=== PATIENT | female | born 1950 | race Native Hawaiian/Other Pacific Islander ===

== ENCOUNTER 2018-07-19 11:41 | Outpatient (CLI) | payer OTHER | END 2018-07-19 11:50 | disposition short-term general hospital (02) | LOC: AMB 11:41 | DX: Z04.3 Encounter for examination and observation following other accident (principal) | CPT/HCPCS: A0425; A0429 ==

== ENCOUNTER 2018-07-19 11:50 | Emergency (ER) | payer OTHER ==
[~2018-07-19] VITALS: Ht 154.9 cm; Wt 91.6 kg
[2018-07-19 12:02] VITALS: BP 147/99; TEMP 98
== END 2018-07-19 13:27 | disposition home or self-care (01) ==
LOC: ED 11:58
DX: S53.492A Other sprain of left elbow, initial encounter (principal); V49.9XXA Car occupant (driver) (passenger) injured in unspecified traffic accident, initial encounter; Y92.89 Other specified places as the place of occurrence of the external cause
CPT/HCPCS: 99283